=== PATIENT | female | born 1955 | race Two or more races ===

== ENCOUNTER → 2021-02-14 | Emergency (ER) | payer MEDICARE, OTHER ==
[~2021-02-14] VITALS: Ht 157.5 cm; Wt 74.5 kg
[~2021-02-14] MED LIST: METF-960 PO; PB/HYOSCY/ATR/SCOP/LIDO/MAALOX 55 ML BOTTLE PO ONE
[2021-02-14 02:30] VITALS: BP 133/71
== END | disposition home or self-care (01) ==
LOC: EMS 00:05
DX: F45.8 Other somatoform disorders (principal); J02.9 Acute pharyngitis, unspecified; E11.9 Type 2 diabetes mellitus without complications; F17.210 Nicotine dependence, cigarettes, uncomplicated; Z79.84 Long term (current) use of oral hypoglycemic drugs
CPT/HCPCS: 99282; Z7502; Z7610